=== PATIENT | male | born 1990 | race African-American/Black ===

== ENCOUNTER 2018-07-06 20:17 | Emergency (ER) | payer MEDICAID ==
[~2018-07-06] VITALS: Ht 180.3 cm; Wt 73.0 kg
[2018-07-06] MEDS ORDERED: SODIUM CHLORIDE 0.9% 1,000 ML IV ONE (22:57)
[2018-07-06] MEDS ORDERED: ONDANSETRON HCL 4MG/2ML INJ IV STA (22:57)
[2018-07-06 23:20] LABS: BASOPHILS % 0.3 % (0.0-2.0); EOSINOPHILS % 0.2 % (0.0-5.0); HEMATOCRIT. 41.3 % (42.0-52.0); HEMOGLOBIN. 13.6 g/dL (14.0-18.0); MEAN CORPUSCULAR HEMOGLOBIN 30.2 pg (28.0-32.0); MEAN CORPUSCULAR VOLUME 91.7 fL (80.0-94.0); MEAN PLATELET VOLUME 6.9 fl (7.4-10.4); MONOCYTES % 3.1 % (2.0-8.0); NEUTROPHILS % 84.4 % (40.0-76.0); PLATELET 270 x1000/uL (130-400); RED CELL DISTRIBUTION WIDTH 14.5 % (11.6-14.6)
[2018-07-06 23:27] LABS: CHLORIDE 105 mEq/L (98-107)
[2018-07-06 23:30] LABS: INR 1.1; PROTHROMBIN TIME 11.4 sec (9.1-11.1)
[2018-07-06 23:31] LABS: ETHANOL BLOOD < 10 mg/dL
[2018-07-07 01:05] LABS: PHENCYCLIDINE URINE SCREEN NEGATIVE (NEGATIVE)
[2018-07-07 01:06] LABS: *AMPHETAMINES SCREEN URINE NEGATIVE (NEGATIVE); *BARBITURATES SCREEN URINE NEGATIVE (NEGATIVE); *BENZODIAZEPINES SCREEN URINE NEGATIVE (NEGATIVE); *COCAINE SCREEN URINE NEGATIVE (NEGATIVE); CANNABINOID URINE SCREEN PRESUMTIVE POSITIVE (NEGATIVE); METHADONE URINE SCREEN NEGATIVE (NEGATIVE)
[2018-07-07 01:07] LABS: OPIATES URINE SCREEN NEGATIVE (NEGATIVE)
[2018-07-07 01:50] VITALS: BP 109/71
== END 2018-07-07 02:04 | disposition home or self-care (01) ==
LOC: ER 20:17
DX: F12.10 Cannabis abuse, uncomplicated (principal); F31.9 Bipolar disorder, unspecified
CPT/HCPCS: 36415; 80053; 80305; 83690; 85025; 85610; 96360; 99284; G0482; J2405; J7030; Z7610

== ENCOUNTER 2019-02-10 03:28 | Emergency (ER) | payer MEDICAID, OTHER ==
[~2019-02-10] VITALS: Ht 180.3 cm; Wt 100.0 kg
[2019-02-10 04:58] VITALS: BP 115/67
== END 2019-02-10 05:12 | disposition home or self-care (01) ==
LOC: ER 03:28
DX: R53.1 Weakness (principal); I10 Essential (primary) hypertension; F31.9 Bipolar disorder, unspecified
CPT/HCPCS: 99283; Z7610